=== PATIENT | female | born 1970 | race Caucasian/White ===

== ENCOUNTER 2018-12-21 08:18 | Emergency (ER) | payer MEDICAID ==
[~2018-12-21] VITALS: Ht 152.4 cm; Wt 71.2 kg
[2018-12-21 08:25] VITALS: BP 135/72
--- NOTE | 2018-12-21 08:28 | NUR ---
pt ambulated to bed 3, report to Jose A WEINER
--- NOTE | 2018-12-21 08:38 | NUR ---
48 YO F BIB SELF PRESENTS TO THE ED WITH C/O COLD S/SX X 1 WEEK. PT ALSO REPORTS NEW ONSET NAUSEA, ANAYA, DIZZINESS SINCE THIS MORNING. PT DENIES FEVER/CHILLS/ SOB. -- PMH: DENIES -- RX: DENIES PT POSITIONED FOR COMFORT. HOB ELEVATED. BED IN LOWEST POSITION. SIDE RAIL UP X 1. VSS. NO APPARENT DISTRESS AT THIS TIME.
[2018-12-21] MEDS ORDERED: ALBUTEROL SULFATE/IPRATROPIU 3 ML SOL IH ONE (08:45)
[2018-12-21] MEDS ORDERED: CLINDAMYCIN 600 MG/4 ML VIAL IM ONE (08:45)
[2018-12-21] MEDS ORDERED: hydrOXYzine HCL 25 MG TAB PO ONE (08:45)
[2018-12-21] MEDS ORDERED: MECLIZINE 25 MG TAB PO ONE (08:45)
[2018-12-21] MEDS ORDERED: DEXAMETHASONE 10 MG/ML VIAL IM ONE (08:45)
[2018-12-21 09:26] VITALS: BP 137/72
--- NOTE | 2018-12-21 09:26 | NUR ---
Patient discharged with v/s stable. Written and verbal after care instructions given and explained. Patient alert, oriented and verbalized understanding of instructions. Ambulatory with steady gait. All questions addressed prior to discharge. ID band removed. Patient advised to follow up with PMD. Rx of Prednisone, Azithromycin, and Promethazine given. Patient educated on indication of medication including possible reaction and side effects. Opportunity to ask questions provided and answered.
== END 2018-12-21 09:26 | disposition home or self-care (01) ==
LOC: MED 08:18
DX: J03.90 Acute tonsillitis, unspecified (principal); J06.9 Acute upper respiratory infection, unspecified
CPT/HCPCS: 94640; 96372; 99283; J1100; J3490; J7620; J8597

== ENCOUNTER 2021-10-03 04:01 | Emergency (ER) | payer MEDICAID ==
[~2021-10-03] VITALS: Ht 144.8 cm; Wt 77.1 kg
[2021-10-03 04:16] VITALS: BP 149/82
--- NOTE | 2021-10-03 04:30 | NUR ---
SEEN AND EXAMINED BY ANNIKA
--- NOTE | 2021-10-03 04:35 | NUR ---
PT TAKEN TO CHAIR A
[2021-10-03] MEDS ORDERED: KETOROLAC 60 MG/2 ML VIAL IM ONE (04:40)
--- NOTE | 2021-10-03 04:40 | NUR ---
MEDICATED PER [facility]MDS ORDER, TOLERATED WELL.
--- NOTE | 2021-10-03 04:56 | NUR ---
PT TAKEN TO RAD
[2021-10-03 06:49] VITALS: BP 149/70
--- NOTE | 2021-10-03 06:50 | NUR ---
Patient discharged with v/s stable. Written and verbal after care instructions given and explained. Patient verbalized understanding. Ambulatory with steady gait. All questions addressed prior to discharge. Advised to follow up with PMD. VSS, A/OX4, STEADY GAIT, UNLABORED BREATHING, AND CALM DEMEANOR.
== END 2021-10-03 06:50 | disposition home or self-care (01) ==
LOC: MED 04:01
DX: R05.9 Cough, unspecified (principal); M94.0 Chondrocostal junction syndrome [Tietze]
CPT/HCPCS: 71045; 93005; 96372; 99283; J1885

== ENCOUNTER 2022-01-19 19:35 | Emergency (ER) | payer MEDICAID ==
[~2022-01-19] VITALS: Ht 152.4 cm; Wt 77.1 kg
[2022-01-19 19:49] VITALS: BP 148/87
--- NOTE | 2022-01-19 20:28 | NUR ---
Urine sample collected and sent to lab.
[2022-01-19 21:58] LABS: APPEARANCE,URINE CLEAR (CLEAR); BILIRUBIN,URINE NEGATIVE (NEGATIVE); BLOOD, URINE NEGATIVE (NEGATIVE); COLOR,URINE STRAW (YELLOW); LEUKOCYTE ESTERASE ,URINE TRACE (NEGATIVE); NITRITE, URINE NEGATIVE (NEGATIVE); UGLUCOSE NEGATIVE (NEGATIVE)
[2022-01-19 22:08] LABS: RBC,URINE NONE SEEN /HPF (0-5); WBC,URINE 0-5 /HPF (0-5)
--- NOTE | 2022-01-19 22:24 | NUR ---
Dr. Jacobs at triage to exam patient.
[2022-01-19] MEDS ORDERED: ACETAMINOPHEN EXTRA STRENGTH 500 MG TAB PO ONE (22:55)
--- NOTE | 2022-01-19 23:00 | NUR ---
Blood for labwork drawn from right arm per accounts receivable accountant. Patient tolerated well.
--- NOTE | 2022-01-19 23:11 | NUR ---
patient ambulated to chair a
[2022-01-19 23:18] LABS: BASOPHILS # (AUTO) 0.1 K/uL (0.00-0.22); BASOPHILS % (AUTO) 0.8 % (0.0-2.0); EOSINOPHILS % (AUTO) 9.6 % (0.0-4.0); HEMATOCRIT 43.8 % (36-48); HEMOGLOBIN 14.6 g/dL (12.0-16.0); LYMPHOCYTES # (AUTO) 2.9 K/uL (2.5-16.5); LYMPHOCYTES % (AUTO) 28.9 % (20.5-51.1); MEAN CORPUSCULAR HEMOGLOBIN 30 pg (27-31); MEAN CORPUSCULAR HGB CONC 33 g/dL (33-37); MONOCYTES # (AUTO) 0.6 K/uL (0.8-1.0); MONOCYTES % (AUTO) 6.3 % (1.7-9.3); NEUTROPHILS # (AUTO) 5.5 K/uL (1.8-7.7); NEUTROPHILS % (AUTO) 54.4 % (42.2-75.2); PLATELET COUNT (AUTO) 278 K/uL (140-450); RED BLOOD CELL COUNT(AUTO) 4.86 MIL/uL (4.20-5.40); RED CELL DISTRIBUTION WIDTH 13.5 % (11.6-13.7)
--- NOTE | 2022-01-19 23:41 | NUR ---
Patient ambulated to bed 8.
[2022-01-19 23:46] LABS: ALBUMIN 3.9 g/dL (3.4-5.0); ANION GAP 11.4 (8-16); CARBON DIOXIDE 29.4 mmol/L (21-32); CREATININE 0.6 mg/dL (0.6-1.3); POTASSIUM 3.8 mmol/L (3.5-5.1); TOTAL BILIRUBIN 0.4 mg/dL (0.0-1.0)
--- NOTE | 2022-01-20 | NUR ---
51/F BIB SELF C/O ANXIETY. PATIENT REPORTED HAVING EPIGASTRIC PAIN WHEN SHE DROVE HOME, THEN GOT ANXIOUS. PATIENT STATED THE PAIN "UPPER BRAD PAIN. AND IT FEELS LIKE CRAMPS" DENIES SOB, CP, D/N/V/FEVER AT THIS TIME PMHX: Anxiety. MEDS denies Sx: X3
--- NOTE | 2022-01-20 00:17 | NUR ---
US AT BEDSIDE
[2022-01-20] MEDS ORDERED: PANT40EC PO (00:50)
--- NOTE | 2022-01-20 01:24 | NUR ---
Patient discharged with v/s stable. Written and verbal after care instructions given and explained. Patient alert, oriented and verbalized understanding of instructions. Ambulatory with steady gait. All questions addressed prior to discharge. ID band removed. Patient advised to follow up with PMD. Rx of PROTONIX given. Patient educated on indication of medication including possible reaction and side effects. Opportunity to ask questions provided and answered.
== END 2022-01-20 01:24 | disposition home or self-care (01) ==
LOC: MED 19:35
DX: R10.13 Epigastric pain (principal); R11.2 Nausea with vomiting, unspecified; Z79.899 Other long term (current) drug therapy
CPT/HCPCS: 36415; 76705; 80053; 81001; 81025; 83690; 85025; 99284; Q0092

== ENCOUNTER 2022-11-20 08:50 | Emergency (ER) | payer MEDICAID ==
[~2022-11-20] VITALS: Ht 152.4 cm; Wt 83.5 kg
[~2022-11-20 08:50] MED LIST: PANT40EC PO
[2022-11-20 09:08] VITALS: BP 130/66
--- NOTE | 2022-11-20 09:11 | NUR ---
Pt ambulated to bed 04 steady/even gait.
--- NOTE | 2022-11-20 09:28 | NUR ---
52/F BIB self from home c/o productive cough, chest and nasal congestion x 3 days. Patient A&Ox4, states coughing episodes cause chest wall pain; 8/10 burning sensation, non-radiating. sick at home with similar symptoms. Theraflu, Ibuprofen last night with temporary relief. Denies SOB, n/v/d, abd pain, headache, fever, chills. Bed locked in lowest position, side rails x 1. PMH/Sx/Meds: 3 C-sections NKDA
--- NOTE | 2022-11-20 09:42 | NUR ---
Dr. Ramos evaluating patient at bedside
[2022-11-20] MEDS ORDERED: [UNRECOGNIZED DRUG - CODE] PO (10:11)
[2022-11-20] MEDS ORDERED: IBUP-2213 PO (10:11)
--- NOTE | 2022-11-20 10:18 | NUR ---
Patient discharged with v/s stable. Written and verbal after care instructions given and explained for Viral Illness, Adult. Patient alert, oriented and verbalized understanding of instructions. Ambulatory with steady gait. All questions addressed prior to discharge. ID band removed. Patient advised to follow up with PMD. Rx of Dm Hb/PE/Acetamionphen/Chlorph, Ibuprofen given. Patient educated on indication of medication including possible reaction and side effects. Opportunity to ask questions provided and answered. Work note given. Patient verbalized understanding regarding receiving phone call for positive results - if no phone call, can assume negative.
== END 2022-11-20 10:48 | disposition home or self-care (01) ==
LOC: MED 08:50
DX: B34.9 Viral infection, unspecified (principal); Z20.822 Contact with and (suspected) exposure to COVID-19; Z79.899 Other long term (current) drug therapy
CPT/HCPCS: 99283

== ENCOUNTER 2023-08-06 07:46 | Emergency (ER) | payer MEDICAID ==
[~2023-08-06] VITALS: Ht 152.4 cm; Wt 80.3 kg
[~2023-08-06 07:46] MED LIST changes: +IBUP-2213 PO; +[UNRECOGNIZED DRUG - CODE] PO
[2023-08-06 08:00] VITALS: BP 134/78; PULSE 75; RESP 20; TEMP 98.1; O2SAT 97
[2023-08-06 09:45] LABS: FLU A ANTIGEN negative (NEGATIVE); FLU B ANTIGEN negative (NEGATIVE)
[2023-08-06] MEDS ORDERED: ALBU0.0912 INH (10:06)
[2023-08-06] MEDS ORDERED: DEXT118S25 PO (10:06)
[2023-08-06] MEDS ORDERED: NAPR-1704 PO (10:06)
[2023-08-06] MEDS ORDERED: BENZ100C6 PO (10:06)
[2023-08-06 10:15] VITALS: BP 134/78; PULSE 75; RESP 20; TEMP 98.1; O2SAT 97
== END 2023-08-06 10:16 | disposition home or self-care (01) ==
LOC: MED 07:46
DX: S29.011A Strain of muscle and tendon of front wall of thorax, initial encounter (principal); J06.9 Acute upper respiratory infection, unspecified; Z20.822 Contact with and (suspected) exposure to COVID-19; Z98.890 Other specified postprocedural states; Z79.899 Other long term (current) drug therapy; Z79.1 Long term (current) use of non-steroidal anti-inflammatories (NSAID); X58.XXXA Exposure to other specified factors, initial encounter; Y92.89 Other specified places as the place of occurrence of the external cause; Y93.89 Activity, other specified; Y99.8 Other external cause status
CPT/HCPCS: 71046; 99284

== ENCOUNTER 2023-10-10 10:31 | Emergency (ER) | payer MEDICAID ==
[~2023-10-10] VITALS: Ht 142.2 cm; Wt 81.6 kg
[~2023-10-10 10:31] MED LIST changes: +ALBU0.0912 INH; +BENZ100C6 PO; +DEXT118S25 PO; +NAPR-1704 PO
[2023-10-10 10:35] VITALS: PULSE 70; RESP 18; TEMP 98.8; O2SAT 97
[2023-10-10] MEDS ORDERED: ONDA-188 PO (11:26)
[2023-10-10] MEDS ORDERED: SPAC1DEV10 MC (11:26)
[2023-10-10 11:33] VITALS: BP 132/82; PULSE 70; RESP 18; TEMP 98.8; O2SAT 97
== END 2023-10-10 11:33 | disposition home or self-care (01) ==
LOC: MED 10:31
DX: U07.1 COVID-19 (principal); Z79.899 Other long term (current) drug therapy
CPT/HCPCS: 99283